=== PATIENT | male | born 1995 ===

== ENCOUNTER 2021-07-02 05:26 | Day surgery (SDC) | payer OTHER ==
[2021-07-02] MEDS ORDERED: OCUFLOX5 ML OTIC (10:49)
[2021-07-02] MEDS ORDERED: ZOFRAN8 MG PO (10:49)
[2021-07-02] MEDS ORDERED: AMOXICILLIN500 M1 PO (10:49)
== END 2021-07-02 13:45 | disposition home or self-care (01) ==
LOC: CIR.AMB 05:26
PROVIDERS: ATTEND Otolaryngology Otology & Neurotology
DX: H71.21 Cholesteatoma of mastoid, right ear (principal); H66.21 Chronic atticoantral suppurative otitis media, right ear; H72.11 Attic perforation of tympanic membrane, right ear; Z20.822 Contact with and (suspected) exposure to COVID-19